=== PATIENT | male | born 1960 | race Caucasian/White ===

== ENCOUNTER 2017-09-21 18:26 | Emergency (ER) | payer MEDICAID | END 2017-09-21 19:03 | disposition home or self-care (01) | LOC: E/R 19:03 → FTE 18:26 | DX: Z48.01 Encounter for change or removal of surgical wound dressing (principal) | CPT/HCPCS: 99283; Z7502 ==

== ENCOUNTER 2018-05-06 16:16 | Emergency (ER) | payer MEDICAID ==
[2018-05-06] MEDS: LIDOCAINE 4% CR TOP (20:23)
[2018-05-06] MEDS: BACITRACIN 0.5%/ZINC 28.35 GM OINT TOP (20:39)
[2018-05-06] MEDS: DIPHTH/TET/ACEL PERTUSS (ADULT) 0.5 ML VIAL IM* (20:46)
== END 2018-05-06 21:05 | disposition home or self-care (01) ==
LOC: FTE 16:16
DX: S30.9 Unspecified superficial injury of abdomen, lower back, pelvis and external genitals (principal); W22.8XXA Striking against or struck by other objects, initial encounter; Y92.9 Unspecified place or not applicable; Z87.891 Personal history of nicotine dependence
CPT/HCPCS: 90471; 90715; 99283-25

== ENCOUNTER 2018-05-07 09:40 | Emergency (ER) | payer MEDICAID ==
[2018-05-07 12:34] LABS: WHITE BLOOD COUNT 3.3 10^3/ul (4.8-10.8)
[2018-05-07 12:34] LABS: ABNORMAL IP MESSAGE 1; MEAN CORPUSCULAR HGB CONC 34.5 g/dl (32.0-37.0); MEAN CORPUSCULAR VOLUME 104.3 fl (82.0-101.0); PLATELET COUNT 42 10^3/UL (140-415); POSITIVE DIFF @See below; RED BLOOD COUNT 2.78 10^6/ul (4.70-6.10); RED CELL DISTRIBUTION WIDTH 14.9 % (11.5-14.5)
[2018-05-07 12:37] LABS: ADD MAN DIFF? YES
[2018-05-07] MEDS: SOD CHLORIDE 0.9% 1,000 ML IV (12:51)
[2018-05-07] MEDS: ONDANSETRON 4 MG INJ IV ×2 (12:51→16:42)
[2018-05-07] MEDS: morphine 4 MG/ML VIAL IV (12:51)
[2018-05-07 12:54] LABS: INR 1.46; PT RATIO 1.4
[2018-05-07 12:57] LABS: ANISOCYTOSIS 2+ (0-0); BASOPHILS % (M) 1 % (0-2); EOSINOPHILS % (M) 1 % (0-7); GIANT THROMBO% (M) 1 % (0-0); LYMPHOCYTES #M 0.4 10^3/ul (0.8-2.9); LYMPHOCYTES % (M) 13 % (15-51); MONOCYTE #M 0.2 10^3/ul (0.3-0.9); MONOCYTES % (M) 9 % (0-11); PLATELET ESTIMATE DECREASED; SEGMENTED NEUTROPHILS (M) % 76 % (39-77); SMUDGE%M 17 % (0-0)
[2018-05-07 13:08] LABS: ALANINE AMINOTRANSFERASE 42 IU/L (13-69); ALBUMIN 2.6 g/dl (3.3-4.9); ALBUMIN/GLOBULIN RATIO 0.57; ALKALINE PHOSPHATASE 266 IU/L (42-121); AMYLASE 42 U/L (11-123); ANION GAP 11 (5-13); ASPARTATE AMINO TRANSFERASE 143 IU/L (15-46); BILIRUBIN,INDIRECT 2.3 mg/dl (0-1.1); BILIRUBIN,TOTAL 2.3 mg/dl (0.2-1.3); BLOOD UREA NITROGEN 3 mg/dl (7-20); CARBON DIOXIDE 26 mmol/L (21-31); CHLORIDE 102 mmol/L (97-110); CREATININE 0.42 mg/dl (0.61-1.24); Estimated GFR > 60 mL/min (>60); GLUCOSE 122 mg/dl (70-220); LIPASE 54 U/L (23-300); SODIUM 139 mmol/L (135-144); TOTAL PROTEIN 7.1 g/dl (6.1-8.1)
[2018-05-07 13:20] LABS: TROPONIN-I 0.015 ng/ml (0.000-0.120)
[2018-05-07] MEDS: IOHEXOL 300MG/ML 150 ML BTL (14:59)
[2018-05-07] MEDS: SOD CHLORIDE 0.9% 100 ML (15:01)
[2018-05-07] MEDS: metroNIDAZOLE 500 MG/NS (PMX) 100 ML IVPB (16:41)
[2018-05-07] MEDS: HYDROmorphONE 2 MG/ML SYG IV (16:42)
[2018-05-07] MEDS: CIPROFLOXACIN 400MG/D5W 200 ML IVPB (17:56)
== END 2018-05-07 19:34 | disposition home or self-care (01) ==
LOC: E/R 09:40
DX: K70.31 Alcoholic cirrhosis of liver with ascites (principal); K57.30 Diverticulosis of large intestine without perforation or abscess without bleeding; K52.9 Noninfective gastroenteritis and colitis, unspecified; R10.32 Left lower quadrant pain
CPT/HCPCS: 36415; 74177; 80053; 82150; 83690; 84484; 85025; 85610; 85730; 93005; 96374; 96375; 99285-25

== ENCOUNTER 2018-06-29 09:14 | Inpatient (IN) | payer MEDICAID ==
[2018-06-29] MEDS: KETOROLAC 15 MG INJ IV (09:53)
[2018-06-29] MEDS: ACETAMINOPHEN 500 MG TAB PO (09:54)
[2018-06-29] MEDS: CEFEPIME 2GM/50 ML (PMX) 50 ML IVPB (09:54)
[2018-06-29] MEDS: SODIUM CHLORIDE 0.9% 1L BAG IV* (09:55)
[2018-06-29 10:02] LABS: ADD MAN DIFF? NO
[2018-06-29 10:06] LABS: ABNORMAL IP MESSAGE 1; HEMATOCRIT 32.6 % (42.0-52.0); LYMPHOCYTES # 0.5 10^3/ul (0.8-2.9); LYMPHOCYTES % 13.1 % (15.0-51.0); MEAN CORPUSCULAR HEMOGLOBIN 32.1 pg (29.0-33.0); MEAN CORPUSCULAR HGB CONC 33.7 g/dl (32.0-37.0); MEAN PLATELET VOLUME 11.6 fl (7.4-10.4); MONOCYTE # 0.4 10^3/ul (0.3-0.9); MONOCYTES % 9.2 % (0.0-11.0); NEUTROPHIL # 3.2 10^3/ul (1.6-7.5); NEUTROPHILS % 76.5 % (39.0-77.0); PLATELET COUNT 64 10^3/UL (140-415); POSITIVE DIFF @See below; RED BLOOD COUNT 3.43 10^6/ul (4.70-6.10); RED CELL DISTRIBUTION WIDTH 15.4 % (11.5-14.5)
[2018-06-29 10:06] LABS: WHITE BLOOD COUNT 4.1 10^3/ul (4.8-10.8)
[2018-06-29 10:28] LABS: INR 1.39; PROTIME 17.3 Sec (11.9-14.9); PT RATIO 1.4
[2018-06-29 10:29] LABS: PARTIAL THROMBOPLASTIN TIME 35.2 Sec (23.0-35.0)
[2018-06-29 11:04] LABS: ALANINE AMINOTRANSFERASE 26 IU/L (13-69); ALBUMIN 3.4 g/dl (3.3-4.9); ALBUMIN/GLOBULIN RATIO 0.65; ALKALINE PHOSPHATASE 317 IU/L (42-121); ANION GAP 13 (5-13); ASPARTATE AMINO TRANSFERASE 115 IU/L (15-46); BLOOD UREA NITROGEN 5 mg/dl (7-20); CALCIUM 8.4 mg/dl (8.4-10.2); CARBON DIOXIDE 22 mmol/L (21-31); CHLORIDE 102 mmol/L (97-110); CREATININE 0.52 mg/dl (0.61-1.24); Estimated GFR > 60 mL/min (>60); GLUCOSE 191 mg/dl (70-220); POTASSIUM 3.5 mmol/L (3.5-5.1); SODIUM 137 mmol/L (135-144); TOTAL PROTEIN 8.6 g/dl (6.1-8.1)
[2018-06-29 11:17] LABS: TROPONIN-I < 0.012 ng/ml (0.000-0.120)
[2018-06-29] MEDS: VANCOMYCIN 1 GM (PMX) 250 ML IVPB (11:23)
[2018-06-29] MEDS ORDERED: NACL 0.9% 3 ML SYG IV (12:00)
[2018-06-29] MEDS ORDERED: GUAIFENESIN/CODEINE 5ML CUP PO (12:00)
[2018-06-29] MEDS ORDERED: ONDANSETRON 4 MG INJ IV ×2 (12:00→12:30)
[2018-06-29] MEDS ORDERED: ALBUTEROL/IPRATROPIUM (NEB) 3 ML AMP HHN (12:00)
[2018-06-29] MEDS ORDERED: ACETAMINOPHEN 325 MG TAB PO (12:30)
[2018-06-29 13:11] LABS: ADD UMIC YES; UR ASCORBIC ACID NEGATIVE (NEGATIVE); UR BILIRUBIN (Dip) NEGATIVE (NEGATIVE); UR BLOOD (Dip) 1+ mg/dL (NEGATIVE); UR CLARITY CLEAR (CLEAR); UR COLOR COLORLESS (YELLOW); UR GLUCOSE (Dip) NEGATIVE (NEGATIVE); UR KETONES (Dip) NEGATIVE (NEGATIVE); UR LEUKOCYTE ESTERASE (Dip) NEGATIVE Leu/ul (NEGATIVE); UR NITRITE (Dip) NEGATIVE (NEGATIVE); UR RBC 0 /HPF (0-5); UR SPECIFIC GRAVITY (Dip) 1.002 (1.003-1.030); UR TOTAL PROTEIN (Dip) NEGATIVE (NEGATIVE); UR UROBILINOGEN (Dip) NEGATIVE (NEGATIVE); UR WBC 0 /HPF (0-5)
[2018-06-29] MEDS: ALBUTEROL/IPRATROPIUM (NEB) 3 ML AMP HHN ×2 (14:00→19:58)
[2018-06-29] MEDS ORDERED: HEPARIN 5,000 UNIT/1 ML VIAL SC (14:00)
[2018-06-29] MEDS: SOD CHLORIDE 0.9% 1,000 ML IV (14:01)
[2018-06-29 15:03] LABS: LACTIC ACID 1.6 mmol/L (0.5-2.0)
[2018-06-29] MEDS: HYDROCODONE/APAP (5/325) TAB PO (18:19)
[2018-06-29] MEDS: CEFEPIME 1GM/50 ML (PMX) 50 ML IVPB (20:20)
[2018-06-30] MEDS: PANTOPRAZOLE (EC) 40 MG TAB PO (05:17)
[2018-06-30] MEDS: ACETAMINOPHEN 325 MG TAB PO ×2 (05:17→20:25)
[2018-06-30 06:00] LABS: ADD MAN DIFF? NO
[2018-06-30 06:07] LABS: WHITE BLOOD COUNT 5.1 10^3/ul (4.8-10.8)
[2018-06-30 06:07] LABS: ABNORMAL IP MESSAGE 1; BASOPHIL # 0.1 10^3/ul (0.0-0.1); EOSINOPHILS # 0.2 10^3/ul (0.0-0.5); EOSINOPHILS % 2.9 % (0.0-7.0); HEMOGLOBIN 10.5 g/dl (14.0-18.0); LYMPHOCYTES # 1.6 10^3/ul (0.8-2.9); LYMPHOCYTES % 31.4 % (15.0-51.0); MEAN CORPUSCULAR HEMOGLOBIN 32.4 pg (29.0-33.0); MEAN CORPUSCULAR VOLUME 92.6 fl (82.0-101.0); MEAN PLATELET VOLUME 10.4 fl (7.4-10.4); MONOCYTE # 0.7 10^3/ul (0.3-0.9); MONOCYTES % 13.1 % (0.0-11.0); NEUTROPHIL # 2.6 10^3/ul (1.6-7.5); NEUTROPHILS % 51.2 % (39.0-77.0); PLATELET COUNT 55 10^3/UL (140-415); POSITIVE DIFF @See below; RED BLOOD COUNT 3.24 10^6/ul (4.70-6.10); RED CELL DISTRIBUTION WIDTH 15.1 % (11.5-14.5)
[2018-06-30 06:37] LABS: ALANINE AMINOTRANSFERASE 31 IU/L (13-69); ALBUMIN 2.9 g/dl (3.3-4.9); ALBUMIN/GLOBULIN RATIO 0.78; ALKALINE PHOSPHATASE 234 IU/L (42-121); ANION GAP 11 (5-13); ASPARTATE AMINO TRANSFERASE 75 IU/L (15-46); BILIRUBIN,INDIRECT 1.9 mg/dl (0-1.1); BILIRUBIN,TOTAL 1.9 mg/dl (0.2-1.3); BLOOD UREA NITROGEN 5 mg/dl (7-20); CALCIUM 8.2 mg/dl (8.4-10.2); CARBON DIOXIDE 23 mmol/L (21-31); CHLORIDE 103 mmol/L (97-110); CREATININE 0.48 mg/dl (0.61-1.24); Estimated GFR > 60 mL/min (>60); GLUCOSE 95 mg/dl (70-220); MAGNESIUM 1.4 mg/dl (1.7-2.5); POTASSIUM 3.5 mmol/L (3.5-5.1); SODIUM 137 mmol/L (135-144); TOTAL PROTEIN 6.6 g/dl (6.1-8.1)
[2018-06-30] MEDS: ALBUTEROL/IPRATROPIUM (NEB) 3 ML AMP HHN ×3 (08:50→19:42)
[2018-06-30] MEDS: CEFEPIME 1GM/50 ML (PMX) 50 ML IVPB ×2 (09:53→20:25)
[2018-06-30] MEDS: MAGNESIUM SULFATE 2 GM/50 ML 50 ML IVPB (10:27)
[2018-06-30] MEDS: SOD CHLORIDE 0.9% 1,000 ML IV (11:37)
[2018-07-01] MEDS: PANTOPRAZOLE (EC) 40 MG TAB PO (05:44)
[2018-07-01 05:55] LABS: ADD MAN DIFF? NO
[2018-07-01 06:01] LABS: WHITE BLOOD COUNT 5.2 10^3/ul (4.8-10.8)
[2018-07-01 06:01] LABS: ABNORMAL IP MESSAGE 1; BASOPHIL # 0.1 10^3/ul (0.0-0.1); EOSINOPHILS # 0.3 10^3/ul (0.0-0.5); EOSINOPHILS % 6.2 % (0.0-7.0); HEMOGLOBIN 10.6 g/dl (14.0-18.0); LYMPHOCYTES # 1.8 10^3/ul (0.8-2.9); LYMPHOCYTES % 35.1 % (15.0-51.0); MEAN CORPUSCULAR HEMOGLOBIN 32.2 pg (29.0-33.0); MEAN CORPUSCULAR HGB CONC 34.2 g/dl (32.0-37.0); MEAN CORPUSCULAR VOLUME 94.2 fl (82.0-101.0); MONOCYTE # 0.6 10^3/ul (0.3-0.9); MONOCYTES % 11.8 % (0.0-11.0); NEUTROPHIL # 2.4 10^3/ul (1.6-7.5); NEUTROPHILS % 45.7 % (39.0-77.0); PLATELET COUNT 58 10^3/UL (140-415); POSITIVE DIFF @See below; RED BLOOD COUNT 3.29 10^6/ul (4.70-6.10); RED CELL DISTRIBUTION WIDTH 15.3 % (11.5-14.5)
[2018-07-01 06:29] LABS: ANION GAP 10 (5-13); BLOOD UREA NITROGEN 7 mg/dl (7-20); CALCIUM 8.2 mg/dl (8.4-10.2); CARBON DIOXIDE 23 mmol/L (21-31); CHLORIDE 109 mmol/L (97-110); CREATININE 0.48 mg/dl (0.61-1.24); Estimated GFR > 60 mL/min (>60); GLUCOSE 93 mg/dl (70-220); MAGNESIUM 1.6 mg/dl (1.7-2.5); PHOSPHORUS 3.8 mg/dl (2.5-4.9); POTASSIUM 3.6 mmol/L (3.5-5.1); SODIUM 142 mmol/L (135-144)
[2018-07-01] MEDS: ALBUTEROL/IPRATROPIUM (NEB) 3 ML AMP HHN ×3 (07:22→20:38)
[2018-07-01] MEDS: CEFEPIME 1GM/50 ML (PMX) 50 ML IVPB ×2 (09:12→20:20)
[2018-07-01] MEDS: MAGNESIUM OXIDE 400 MG TAB PO (11:09)
[2018-07-01] MEDS: NYSTATIN SUSP 5 ML CUP PO ×3 (15:17→20:20)
[2018-07-01 15:46] LABS: HIV 1&2 ANTIBODY NEGATIVE (NEGATIVE)
[2018-07-01] MEDS: SOD CHLORIDE 0.9% 1,000 ML IV (16:42)
[2018-07-01] MEDS: NYSTATIN 15 GM OINT TOP ×2 (17:32→20:20)
[2018-07-01] MEDS ORDERED: NYSTATIN 15 GM OINT TOP (21:00)
[2018-07-02] MEDS: PANTOPRAZOLE (EC) 40 MG TAB PO (05:40)
[2018-07-02 06:54] LABS: ALANINE AMINOTRANSFERASE 27 IU/L (13-69); ALBUMIN 2.7 g/dl (3.3-4.9); ALBUMIN/GLOBULIN RATIO 0.62; ALKALINE PHOSPHATASE 273 IU/L (42-121); ANION GAP 7 (5-13); ASPARTATE AMINO TRANSFERASE 69 IU/L (15-46); BILIRUBIN,INDIRECT 1.8 mg/dl (0-1.1); BILIRUBIN,TOTAL 1.8 mg/dl (0.2-1.3); BLOOD UREA NITROGEN 5 mg/dl (7-20); CARBON DIOXIDE 22 mmol/L (21-31); CHLORIDE 110 mmol/L (97-110); CREATININE 0.43 mg/dl (0.61-1.24); Estimated GFR > 60 mL/min (>60); GLUCOSE 94 mg/dl (70-220); MAGNESIUM 1.5 mg/dl (1.7-2.5); POTASSIUM 3.7 mmol/L (3.5-5.1); SODIUM 139 mmol/L (135-144)
[2018-07-02] MEDS: ALBUTEROL/IPRATROPIUM (NEB) 3 ML AMP HHN ×3 (07:50→19:51)
[2018-07-02] MEDS: NYSTATIN 15 GM OINT TOP ×3 (08:23→21:00)
[2018-07-02] MEDS: NYSTATIN SUSP 5 ML CUP PO ×4 (08:24→20:56)
[2018-07-02] MEDS: CEFEPIME 1GM/50 ML (PMX) 50 ML IVPB (08:24)
[2018-07-03] MEDS: PANTOPRAZOLE (EC) 40 MG TAB PO (06:11)
[2018-07-03] MEDS: ALBUTEROL/IPRATROPIUM (NEB) 3 ML AMP HHN (08:00)
[2018-07-03] MEDS: NYSTATIN SUSP 5 ML CUP PO (08:32)
[2018-07-03] MEDS: NYSTATIN 15 GM OINT TOP (08:35)
== END 2018-07-03 11:52 | disposition home or self-care (01) | DRG 872 ==
LOC: E/R 09:14 → PP2 12:20
PROVIDERS: Internal Medicine
PROC: 3E0234Z Introduction of Serum, Toxoid and Vaccine into Muscle, Percutaneous Approach (ICD-10-PCS; principal; 2018-06-30)
DX: A41.89 Other specified sepsis (principal); D61.818 Other pancytopenia; E87.2 Acidosis; B37.0 Candidal stomatitis; J06.9 Acute upper respiratory infection, unspecified; K70.30 Alcoholic cirrhosis of liver without ascites; Z23 Encounter for immunization
CPT/HCPCS: 71045; 80048; 80053; 81001; 83605; 83735; 84100; 84484; 85025; 85610; 85730; 86703; 87040; 87086; 87400; 90686; 93005; 94640; 94664; 96365; 96375; 99285-25

== ENCOUNTER 2018-07-15 08:07 | Emergency (ER) | payer MEDICAID ==
[2018-07-15] MEDS: morphine 4 MG/ML VIAL IV (08:38)
[2018-07-15 08:39] LABS: ADD MAN DIFF? NO
[2018-07-15] MEDS: ONDANSETRON 4 MG INJ IV (08:39)
[2018-07-15 08:44] LABS: WHITE BLOOD COUNT 3.4 10^3/ul (4.8-10.8)
[2018-07-15 08:44] LABS: ABNORMAL IP MESSAGE 1; BASOPHIL # 0.1 10^3/ul (0.0-0.1); BASOPHILS % 1.5 % (0.0-2.0); EOSINOPHILS # 0.1 10^3/ul (0.0-0.5); EOSINOPHILS % 2.4 % (0.0-7.0); HEMATOCRIT 32.7 % (42.0-52.0); HEMOGLOBIN 11.1 g/dl (14.0-18.0); LYMPHOCYTES # 1.1 10^3/ul (0.8-2.9); LYMPHOCYTES % 31.6 % (15.0-51.0); MEAN CORPUSCULAR HEMOGLOBIN 31.4 pg (29.0-33.0); MEAN CORPUSCULAR HGB CONC 33.9 g/dl (32.0-37.0); MEAN CORPUSCULAR VOLUME 92.6 fl (82.0-101.0); MEAN PLATELET VOLUME 12.2 fl (7.4-10.4); MONOCYTE # 0.4 10^3/ul (0.3-0.9); MONOCYTES % 11.3 % (0.0-11.0); NEUTROPHIL # 1.8 10^3/ul (1.6-7.5); NEUTROPHILS % 52.9 % (39.0-77.0); PLATELET COUNT 57 10^3/UL (140-415); POSITIVE DIFF @See below; RED BLOOD COUNT 3.53 10^6/ul (4.70-6.10); RED CELL DISTRIBUTION WIDTH 15.8 % (11.5-14.5)
[2018-07-15 08:47] LABS: ADD UMIC YES; UR ASCORBIC ACID NEGATIVE (NEGATIVE); UR BILIRUBIN (Dip) NEGATIVE (NEGATIVE); UR BLOOD (Dip) 1+ mg/dL (NEGATIVE); UR CLARITY CLEAR (CLEAR); UR COLOR YELLOW (YELLOW); UR GLUCOSE (Dip) NEGATIVE (NEGATIVE); UR KETONES (Dip) NEGATIVE (NEGATIVE); UR LEUKOCYTE ESTERASE (Dip) NEGATIVE Leu/ul (NEGATIVE); UR NITRITE (Dip) NEGATIVE (NEGATIVE); UR RBC 3 /HPF (0-5); UR SPECIFIC GRAVITY (Dip) 1.014 (1.003-1.030); UR TOTAL PROTEIN (Dip) NEGATIVE (NEGATIVE); UR UROBILINOGEN (Dip) 2+ mg/dL (NEGATIVE); UR WBC 0 /HPF (0-5)
[2018-07-15 09:06] LABS: ALANINE AMINOTRANSFERASE 42 IU/L (13-69); ALBUMIN 3.7 g/dl (3.3-4.9); ALBUMIN/GLOBULIN RATIO 0.67; ALKALINE PHOSPHATASE 415 IU/L (42-121); ANION GAP 11 (5-13); ASPARTATE AMINO TRANSFERASE 169 IU/L (15-46); BILIRUBIN,INDIRECT 1.7 mg/dl (0-1.1); BILIRUBIN,TOTAL 1.7 mg/dl (0.2-1.3); BLOOD UREA NITROGEN 7 mg/dl (7-20); CALCIUM 8.9 mg/dl (8.4-10.2); CARBON DIOXIDE 21 mmol/L (21-31); CHLORIDE 107 mmol/L (97-110); CREATININE 0.44 mg/dl (0.61-1.24); Estimated GFR > 60 mL/min (>60); GLUCOSE 114 mg/dl (70-220); LIPASE 147 U/L (23-300); POTASSIUM 3.4 mmol/L (3.5-5.1); SODIUM 139 mmol/L (135-144); TOTAL PROTEIN 9.2 g/dl (6.1-8.1)
[2018-07-15 09:18] LABS: TROPONIN-I < 0.012 ng/ml (0.000-0.120)
== END 2018-07-15 10:45 | disposition home or self-care (01) ==
LOC: E/R 08:07
DX: R10.13 Epigastric pain (principal)
CPT/HCPCS: 36415; 76705; 80053; 81001; 83690; 84484; 85025; 93005; 96374; 96375; 99285-25

== ENCOUNTER 2018-08-10 09:22 | Emergency (ER) | payer MEDICAID | END 2018-08-10 10:26 | disposition home or self-care (01) | LOC: FTE 09:22 | DX: R05 Cough (principal); R40.2412 Glasgow coma scale score 13-15, at arrival to emergency department; R52 Pain, unspecified | CPT/HCPCS: 99283; Z7502 ==

== ENCOUNTER 2018-08-28 16:25 | Emergency (ER) | payer MEDICAID ==
[2018-08-28 18:02] LABS: ABNORMAL IP MESSAGE 1; HEMATOCRIT 29.7 % (42.0-52.0); HEMOGLOBIN 9.9 g/dl (14.0-18.0); MEAN CORPUSCULAR HEMOGLOBIN 30.7 pg (29.0-33.0); MEAN CORPUSCULAR HGB CONC 33.3 g/dl (32.0-37.0); MEAN CORPUSCULAR VOLUME 92.2 fl (82.0-101.0); MEAN PLATELET VOLUME 9.3 fl (7.4-10.4); PLATELET COUNT 75 10^3/UL (140-415); POSITIVE DIFF @See below; RED BLOOD COUNT 3.22 10^6/ul (4.70-6.10); RED CELL DISTRIBUTION WIDTH 20.3 % (11.5-14.5)
[2018-08-28 18:02] LABS: WHITE BLOOD COUNT 4.9 10^3/ul (4.8-10.8)
[2018-08-28 18:08] LABS: ANION GAP 5 (5-13); BLOOD UREA NITROGEN 9 mg/dl (7-20); CARBON DIOXIDE 24 mmol/L (21-31); CHLORIDE 112 mmol/L (97-110); CREATININE 0.56 mg/dl (0.61-1.24); Estimated GFR > 60 mL/min (>60); GLUCOSE 99 mg/dl (70-220); POTASSIUM 3.6 mmol/L (3.5-5.1); SODIUM 141 mmol/L (135-144)
[2018-08-28 18:15] LABS: ADD MAN DIFF? YES
[2018-08-28] MEDS: SOD CHLORIDE 0.9% 1,000 ML IV (18:17)
[2018-08-28] MEDS: KETOROLAC 30 MG INJ IV (18:17)
[2018-08-28 18:19] LABS: TROPONIN-I < 0.012 ng/ml (0.000-0.120)
[2018-08-28 19:25] LABS: BASOPHILS % (M) 2 % (0-2); EOSINOPHILS % (M) 3 % (0-7); GIANT THROMBO% (M) 1 % (0-0); LYMPHOCYTES #M 1.1 10^3/ul (0.8-2.9); LYMPHOCYTES % (M) 24 % (15-51); MONOCYTE #M 0.3 10^3/ul (0.3-0.9); MONOCYTES % (M) 7 % (0-11); PLATELET ESTIMATE NORMAL; SEGMENTED NEUTROPHILS (M) % 64 % (39-77); SMUDGE%M 2 % (0-0)
[2018-08-28] MEDS: ONDANSETRON 4 MG INJ IV (22:29)
[2018-08-28] MEDS: HYDROmorphONE 1 MG/ML SYG IV (22:30)
== END 2018-08-28 23:25 | disposition home or self-care (01) ==
LOC: FTE 16:25 → E/R 23:25
DX: B34.9 Viral infection, unspecified (principal); R07.9 Chest pain, unspecified
CPT/HCPCS: 36415; 71045; 80048; 84484; 85025; 87400; 93005; 96374; 96375; 99285-25

== ENCOUNTER 2018-09-12 08:34 | Emergency (ER) | payer MEDICAID ==
[2018-09-12] MEDS: KETOROLAC 30 MG INJ IM (11:05)
== END 2018-09-12 12:30 | disposition home or self-care (01) ==
LOC: FTE 08:34
DX: S49.92XA Unspecified injury of left shoulder and upper arm, initial encounter (principal); X58.XXXA Exposure to other specified factors, initial encounter; Y92.9 Unspecified place or not applicable
CPT/HCPCS: 73030; 96372; 99284-25

== ENCOUNTER 2018-10-19 17:29 | Inpatient (IN) | payer MEDICAID ==
[2018-10-19] MEDS ORDERED: TRANEXAMIC ACID 1GM/100ML(PMX) 100 ML IV (21:00)
[2018-10-19] MEDS ORDERED: TRANEXAMIC ACID 1,000 MG/10 ML VIAL IRR (21:00)
[2018-10-19 21:02] LABS: ABNORMAL IP MESSAGE 1; HEMATOCRIT 29.5 % (42.0-52.0); MEAN CORPUSCULAR HEMOGLOBIN 31.7 pg (29.0-33.0); MEAN CORPUSCULAR HGB CONC 33.9 g/dl (32.0-37.0); MEAN CORPUSCULAR VOLUME 93.7 fl (82.0-101.0); MEAN PLATELET VOLUME 10.5 fl (7.4-10.4); POSITIVE DIFF @See below; RED BLOOD COUNT 3.15 10^6/ul (4.70-6.10); RED CELL DISTRIBUTION WIDTH 18.2 % (11.5-14.5)
[2018-10-19 21:06] LABS: ADD MAN DIFF? YES; PATH REVIEW? YES; PLATELET COUNT 17 10^3/UL (140-415)
[2018-10-19 21:17] LABS: ALANINE AMINOTRANSFERASE 42 IU/L (13-69); ALBUMIN 3.4 g/dl (3.3-4.9); ALKALINE PHOSPHATASE 311 IU/L (42-121); ANION GAP 11 (5-13); ASPARTATE AMINO TRANSFERASE 160 IU/L (15-46); BILIRUBIN,INDIRECT 1.1 mg/dl (0-1.1); BILIRUBIN,TOTAL 1.1 mg/dl (0.2-1.3); BLOOD UREA NITROGEN 8 mg/dl (7-20); CALCIUM 8.5 mg/dl (8.4-10.2); CARBON DIOXIDE 24 mmol/L (21-31); CHLORIDE 107 mmol/L (97-110); CREATININE 0.59 mg/dl (0.61-1.24); Estimated GFR > 60 mL/min (>60); GLUCOSE 98 mg/dl (70-220); POTASSIUM 3.5 mmol/L (3.5-5.1); SODIUM 142 mmol/L (135-144); TOTAL PROTEIN 8.2 g/dl (6.1-8.1)
[2018-10-19 21:20] LABS: INR 1.39; PROTIME 17.2 Sec (11.9-14.9); PT RATIO 1.3
[2018-10-19 21:21] LABS: PARTIAL THROMBOPLASTIN TIME 39.2 Sec (23.0-35.0)
[2018-10-19 21:28] LABS: TROPONIN-I < 0.012 ng/ml (0.000-0.120)
[2018-10-19 21:42] LABS: ANISOCYTOSIS 2+ (0-0); BASOPHILS % (M) 1 % (0-2); EOSINOPHILS % (M) 6 % (0-7); HYPOCHROMASIA 1+ (0-0); LYMPHOCYTES #M 1.2 10^3/ul (0.8-2.9); LYMPHOCYTES % (M) 40 % (15-51); MONOCYTE #M 0.1 10^3/ul (0.3-0.9); MONOCYTES % (M) 5 % (0-11); PLATELET ESTIMATE DECREASED; POIKILOCYTOSIS 1+ (0-0); POLYCHROMASIA 3+ (0-0); REACTIVE LYMPHOCYTES% (M) 2 % (0-0); SEGMENTED NEUTROPHILS (M) % 46 % (39-77); SMUDGE%M 6 % (0-0)
[2018-10-19] MEDS: SODIUM CHLORIDE 0.9% 1L BAG IV* (21:43)
[2018-10-19] MEDS: CEFEPIME 2GM/50 ML (PMX) 50 ML IVPB (21:43)
[2018-10-19] MEDS: VANCOMYCIN 1 GM (PMX) 250 ML IVPB (21:44)
[2018-10-19] MEDS: TRANEXAMIC ACID 1,000 MG/10 ML VIAL IRR (22:00)
[2018-10-19 22:47] LABS: LACTIC ACID 1.6 mmol/L (0.5-2.0)
[2018-10-19 22:53] LABS: D-DIMER 1130.83 ng/ml (<460)
[2018-10-19 23:04] LABS: FIBRIN SPLIT PRODUCT <10 ug/ml (<10)
[2018-10-19 23:23] LABS: ALANINE AMINOTRANSFERASE 36 IU/L (13-69); ALBUMIN/GLOBULIN RATIO 0.68; ALKALINE PHOSPHATASE 299 IU/L (42-121); ANION GAP 10 (5-13); ASPARTATE AMINO TRANSFERASE 150 IU/L (15-46); BLOOD UREA NITROGEN 7 mg/dl (7-20); CALCIUM 7.6 mg/dl (8.4-10.2); CARBON DIOXIDE 21 mmol/L (21-31); CHLORIDE 111 mmol/L (97-110); CREATININE 0.49 mg/dl (0.61-1.24); Estimated GFR > 60 mL/min (>60); GLUCOSE 94 mg/dl (70-220); LIPASE 273 U/L (23-300); POTASSIUM 3.3 mmol/L (3.5-5.1); SODIUM 142 mmol/L (135-144); TOTAL PROTEIN 7.4 g/dl (6.1-8.1)
[2018-10-19] MEDS ORDERED: NACL 0.9% 3 ML SYG IV (23:30)
[2018-10-19] MEDS ORDERED: ONDANSETRON 4 MG INJ IV (23:30)
[2018-10-20] MEDS: ACETAMINOPHEN 500 MG TAB PO ×3 (00:32→15:45)
[2018-10-20 00:53] LABS: ADD UMIC YES; UR ASCORBIC ACID NEGATIVE (NEGATIVE); UR BILIRUBIN (Dip) NEGATIVE (NEGATIVE); UR BLOOD (Dip) 1+ mg/dL (NEGATIVE); UR CLARITY CLEAR (CLEAR); UR COLOR STRAW (YELLOW); UR GLUCOSE (Dip) NEGATIVE (NEGATIVE); UR KETONES (Dip) NEGATIVE (NEGATIVE); UR LEUKOCYTE ESTERASE (Dip) NEGATIVE Leu/ul (NEGATIVE); UR NITRITE (Dip) NEGATIVE (NEGATIVE); UR RBC 1 /HPF (0-5); UR SPECIFIC GRAVITY (Dip) 1.004 (1.003-1.030); UR TOTAL PROTEIN (Dip) NEGATIVE (NEGATIVE); UR UROBILINOGEN (Dip) NEGATIVE (NEGATIVE); UR WBC 0 /HPF (0-5)
[2018-10-20] MEDS: OXYMETAZOLINE 0.05% 15 ML NAS SPRAY NASAL ×3 (00:54→21:04)
[2018-10-20] MEDS: POTASSIUM CHLORIDE (SR) 20 MEQ TAB PO ×2 (01:32→22:29)
[2018-10-20 03:02] LABS: LACTIC ACID 1.9 mmol/L (0.5-2.0)
[2018-10-20] MEDS: PANTOPRAZOLE 40 MG INJ IV (06:21)
[2018-10-20] MEDS ORDERED: HYDROCODONE/APAP (5/325) TAB PO ×2 (07:30)
[2018-10-20 08:30] LABS: ADD MAN DIFF? NO
[2018-10-20 08:38] LABS: ABNORMAL IP MESSAGE 1; BASOPHILS % 1.5 % (0.0-2.0); EOSINOPHILS # 0.1 10^3/ul (0.0-0.5); EOSINOPHILS % 3.4 % (0.0-7.0); HEMATOCRIT 30.4 % (42.0-52.0); HEMOGLOBIN 10.1 g/dl (14.0-18.0); LYMPHOCYTES # 0.9 10^3/ul (0.8-2.9); LYMPHOCYTES % 33.7 % (15.0-51.0); MEAN CORPUSCULAR HEMOGLOBIN 31.2 pg (29.0-33.0); MEAN CORPUSCULAR HGB CONC 33.2 g/dl (32.0-37.0); MEAN CORPUSCULAR VOLUME 93.8 fl (82.0-101.0); MONOCYTE # 0.3 10^3/ul (0.3-0.9); MONOCYTES % 12.6 % (0.0-11.0); NEUTROPHIL # 1.3 10^3/ul (1.6-7.5); NEUTROPHILS % 48.4 % (39.0-77.0); POSITIVE DIFF @See below; RED BLOOD COUNT 3.24 10^6/ul (4.70-6.10); RED CELL DISTRIBUTION WIDTH 17.6 % (11.5-14.5)
[2018-10-20 08:43] LABS: WHITE BLOOD COUNT 2.7 10^3/ul (4.8-10.8)
[2018-10-20 08:46] LABS: PLATELET COUNT 17 10^3/UL (140-415)
[2018-10-20 08:53] LABS: TYPE AND SCREEN 1 1
[2018-10-20 09:05] LABS: ALANINE AMINOTRANSFERASE 28 IU/L (13-69); ALBUMIN 3.3 g/dl (3.3-4.9); ALKALINE PHOSPHATASE 310 IU/L (42-121); ANION GAP 12 (5-13); ASPARTATE AMINO TRANSFERASE 150 IU/L (15-46); BILIRUBIN,TOTAL 2.2 mg/dl (0.2-1.3); BLOOD UREA NITROGEN 5 mg/dl (7-20); CALCIUM 7.7 mg/dl (8.4-10.2); CARBON DIOXIDE 22 mmol/L (21-31); CHLORIDE 107 mmol/L (97-110); CHOL/HDL RATIO 3.8 RATIO; CHOLESTEROL 163 mg/dl (100-200); Estimated GFR > 60 mL/min (>60); GLUCOSE 98 mg/dl (70-220); HDL CHOLESTEROL 42 mg/dl (30-78); LDL CHOLESTEROL,CALCULATED 96 mg/dl; MAGNESIUM 1.3 mg/dl (1.7-2.5); POTASSIUM 3.2 mmol/L (3.5-5.1); SODIUM 141 mmol/L (135-144); TRIGLYCERIDES 124 mg/dl (0-149)
[2018-10-20] MEDS: FUROSEMIDE 40 MG TAB PO (15:43)
[2018-10-20] MEDS: THIAMINE 100 MG TAB PO (15:43)
[2018-10-20] MEDS: MAGNESIUM SULFATE 3 GM in DEXTROSE 5% 100 ML IVPB (17:13)
[2018-10-20] MEDS: SOD CHLORIDE 0.9% 0 ML IV (17:30)
[2018-10-20] MEDS: NADOLOL 40 MG TAB PO (21:15)
[2018-10-21] MEDS: PANTOPRAZOLE (EC) 40 MG TAB PO (05:40)
[2018-10-21 06:15] LABS: ADD MAN DIFF? NO; HAAIG REFLEX REFLEX FILED
[2018-10-21 06:22] LABS: ABNORMAL IP MESSAGE 1; BASOPHIL # 0.1 10^3/ul (0.0-0.1); BASOPHILS % 2.2 % (0.0-2.0); EOSINOPHILS # 0.2 10^3/ul (0.0-0.5); EOSINOPHILS % 5.5 % (0.0-7.0); HEMATOCRIT 32.1 % (42.0-52.0); HEMOGLOBIN 11.1 g/dl (14.0-18.0); LYMPHOCYTES % 28.5 % (15.0-51.0); MEAN CORPUSCULAR HGB CONC 34.6 g/dl (32.0-37.0); MEAN CORPUSCULAR VOLUME 92.5 fl (82.0-101.0); MEAN PLATELET VOLUME 11.2 fl (7.4-10.4); MONOCYTE # 0.5 10^3/ul (0.3-0.9); MONOCYTES % 12.6 % (0.0-11.0); NEUTROPHIL # 1.9 10^3/ul (1.6-7.5); NEUTROPHILS % 51.2 % (39.0-77.0); NUCLEATED RED BLOOD CELLS% 0.8 /100WBC (0.0-0.0); POSITIVE DIFF @See below; RED BLOOD COUNT 3.47 10^6/ul (4.70-6.10); RED CELL DISTRIBUTION WIDTH 17.3 % (11.5-14.5)
[2018-10-21 06:22] LABS: WHITE BLOOD COUNT 3.7 10^3/ul (4.8-10.8)
[2018-10-21 06:33] LABS: INR 1.61; PROTIME 19.2 Sec (11.9-14.9); PT RATIO 1.5
[2018-10-21 06:37] LABS: PLATELET COUNT 41 10^3/UL (140-415)
[2018-10-21 06:55] LABS: ALANINE AMINOTRANSFERASE 34 IU/L (13-69); ALBUMIN 3.4 g/dl (3.3-4.9); ALBUMIN/GLOBULIN RATIO 0.69; ALKALINE PHOSPHATASE 283 IU/L (42-121); ANION GAP 11 (5-13); ASPARTATE AMINO TRANSFERASE 123 IU/L (15-46); BILIRUBIN,INDIRECT 2.6 mg/dl (0-1.1); BILIRUBIN,TOTAL 3.3 mg/dl (0.2-1.3); BLOOD UREA NITROGEN 11 mg/dl (7-20); CALCIUM 8.5 mg/dl (8.4-10.2); CARBON DIOXIDE 24 mmol/L (21-31); CHLORIDE 102 mmol/L (97-110); CREATININE 0.51 mg/dl (0.61-1.24); Estimated GFR > 60 mL/min (>60); GLUCOSE 110 mg/dl (70-220); POTASSIUM 3.7 mmol/L (3.5-5.1); SODIUM 137 mmol/L (135-144); TOTAL PROTEIN 8.3 g/dl (6.1-8.1)
[2018-10-21 07:03] LABS: MAGNESIUM 1.9 mg/dl (1.7-2.5)
[2018-10-21 07:21] LABS: HEPATITIS B SURFACE ANTIGEN NEGATIVE (NEGATIVE)
[2018-10-21 07:22] LABS: ALPHA FETOPROTEIN 4.29 IU/L (0.00-7.21)
[2018-10-21 07:39] LABS: HEPATITIS B CORE ANTIBODY REACTIVE (NEGATIVE); HEPATITIS C VIRAL ANTIBODY NEGATIVE (NEGATIVE)
[2018-10-21 07:56] LABS: HEMOGLOBIN A1C 4.6 % (0-5.9)
[2018-10-21 08:20] LABS: PHOSPHORUS 3.7 mg/dl (2.5-4.9)
[2018-10-21] MEDS: OXYMETAZOLINE 0.05% 15 ML NAS SPRAY NASAL (09:00)
[2018-10-21] MEDS: SPIRONOLACTONE 25 MG TAB PO (09:42)
[2018-10-21] MEDS: NADOLOL 40 MG TAB PO (09:42)
[2018-10-21] MEDS: THIAMINE 100 MG TAB PO (09:42)
== END 2018-10-21 15:53 | disposition home or self-care (01) | DRG 809 ==
LOC: FTE 17:29 → TEL 21:38
PROC: 30233R1 Transfusion of Nonautologous Platelets into Peripheral Vein, Percutaneous Approach (ICD-10-PCS; principal; 2018-10-20)
DX: D61.818 Other pancytopenia (principal); D68.4 Acquired coagulation factor deficiency; K70.30 Alcoholic cirrhosis of liver without ascites; R04.0 Epistaxis; E80.6 Other disorders of bilirubin metabolism; M54.5 Low back pain; R10.9 Unspecified abdominal pain; R74.0 Nonspecific elevation of levels of transaminase and lactic acid dehydrogenase [LDH]; R50.9 Fever, unspecified
CPT/HCPCS: 36415; 36430; 71045; 76705; 80053; 80061; 81001; 82105; 83036; 83605; 83690; 83735; 84100; 84443; 84484; 85025; 85362; 85378; 85384; 85610; 85730; 86704; 86709; 86803; 86850; 86900; 86901; 87040-91; 87086; 87340; 87400; 93005; 99285-25

== ENCOUNTER 2019-01-29 14:10 | Emergency (ER) | payer MEDICAID ==
[2019-01-29 16:47] LABS: ADD MAN DIFF? NO
[2019-01-29 16:48] LABS: ABNORMAL IP MESSAGE 1; BASOPHIL # 0.1 10^3/ul (0.0-0.1); BASOPHILS % 1.4 % (0.0-2.0); EOSINOPHILS # 0.2 10^3/ul (0.0-0.5); EOSINOPHILS % 4.9 % (0.0-7.0); HEMATOCRIT 31.3 % (42.0-52.0); HEMOGLOBIN 10.4 g/dl (14.0-18.0); LYMPHOCYTES # 1.3 10^3/ul (0.8-2.9); LYMPHOCYTES % 25.8 % (15.0-51.0); MEAN CORPUSCULAR HEMOGLOBIN 36.7 pg (29.0-33.0); MEAN CORPUSCULAR HGB CONC 33.2 g/dl (32.0-37.0); MEAN CORPUSCULAR VOLUME 110.6 fl (82.0-101.0); MEAN PLATELET VOLUME 10.1 fl (7.4-10.4); MONOCYTE # 0.5 10^3/ul (0.3-0.9); MONOCYTES % 10.8 % (0.0-11.0); NEUTROPHIL # 2.8 10^3/ul (1.6-7.5); NEUTROPHILS % 56.5 % (39.0-77.0); POSITIVE DIFF @See below; RED BLOOD COUNT 2.83 10^6/ul (4.70-6.10); RED CELL DISTRIBUTION WIDTH 17.1 % (11.5-14.5)
[2019-01-29 16:48] LABS: WHITE BLOOD COUNT 4.9 10^3/ul (4.8-10.8)
[2019-01-29 17:11] LABS: PLATELET COUNT 49 10^3/UL (140-415); PROTIME 20.1 Sec (11.9-14.9); PT RATIO 1.6
[2019-01-29 17:12] LABS: PARTIAL THROMBOPLASTIN TIME 40.9 Sec (23.0-35.0)
[2019-01-29 17:18] LABS: ALANINE AMINOTRANSFERASE 34 IU/L (13-69); ALBUMIN 2.4 g/dl (3.3-4.9); ALBUMIN/GLOBULIN RATIO 0.45; ALKALINE PHOSPHATASE 387 IU/L (42-121); AMYLASE 74 U/L (11-123); ANION GAP 8 (5-13); ASPARTATE AMINO TRANSFERASE 143 IU/L (15-46); BILIRUBIN,INDIRECT 2.1 mg/dl (0-1.1); BILIRUBIN,TOTAL 3.1 mg/dl (0.2-1.3); BLOOD UREA NITROGEN 6 mg/dl (7-20); CALCIUM 7.3 mg/dl (8.4-10.2); CARBON DIOXIDE 22 mmol/L (21-31); CHLORIDE 109 mmol/L (97-110); CREATININE 0.68 mg/dl (0.61-1.24); Estimated GFR > 60 mL/min (>60); GLUCOSE 102 mg/dl (70-220); LIPASE 154 U/L (23-300); POTASSIUM 3.3 mmol/L (3.5-5.1); SODIUM 139 mmol/L (135-144); TOTAL PROTEIN 7.7 g/dl (6.1-8.1)
[2019-01-29 17:29] LABS: B-TYPE NATRIURETIC PEPTIDE 201 PG/ML (0-125); TROPONIN-I < 0.012 ng/ml (0.000-0.120)
[2019-01-29 17:44] LABS: AMMONIA 35 umol/l (9-30)
[2019-01-29 18:57] LABS: ADD UMIC YES; UR ASCORBIC ACID NEGATIVE (NEGATIVE); UR BILIRUBIN (Dip) 2+ mg/dL (NEGATIVE); UR BLOOD (Dip) 3+ mg/dL (NEGATIVE); UR CLARITY SLIGHTLY CLOUDY (CLEAR); UR COLOR AMBER (YELLOW); UR GLUCOSE (Dip) NEGATIVE (NEGATIVE); UR KETONES (Dip) NEGATIVE (NEGATIVE); UR LEUKOCYTE ESTERASE (Dip) NEGATIVE Leu/ul (NEGATIVE); UR MUCUS MODERATE /HPF (NONE SEEN); UR NITRITE (Dip) NEGATIVE (NEGATIVE); UR RBC 66 /HPF (0-5); UR SPECIFIC GRAVITY (Dip) 1.025 (1.003-1.030); UR TOTAL PROTEIN (Dip) 3+ mg/dl (NEGATIVE); UR UROBILINOGEN (Dip) 2+ mg/dL (NEGATIVE); UR WBC 6 /HPF (0-5)
[2019-01-29 19:07] LABS: AMPHETAMINE/METHAMPHETAMINE Negative (NEGATIVE); BARBITURATES Negative (NEGATIVE); BENZODIAZEPINES Negative (NEGATIVE); CANNABINOIDS Negative (NEGATIVE); COCAINE Negative (NEGATIVE); OPIATES Negative (NEGATIVE)
[2019-01-29] MEDS: LACTULOSE 30ML CUP PO (20:05)
== END 2019-01-29 20:42 | disposition home or self-care (01) ==
LOC: E/R 14:10
DX: K70.31 Alcoholic cirrhosis of liver with ascites (principal); D47.3 Essential (hemorrhagic) thrombocythemia; R60.0 Localized edema; E72.20 Disorder of urea cycle metabolism, unspecified; F10.920 Alcohol use, unspecified with intoxication, uncomplicated; R10.9 Unspecified abdominal pain; Z87.891 Personal history of nicotine dependence
CPT/HCPCS: 71045; 74176; 80053; 80307; 81001; 82140; 82150; 83690; 83880; 84484; 85025; 85610; 85730; 87086; 93005; 93970; 99285-25

== ENCOUNTER 2019-01-30 10:47 | Emergency (ER) | payer MEDICAID | END 2019-01-30 11:47 | disposition home or self-care (01) | LOC: FTE 10:47 | DX: L29.8 Other pruritus (principal); Z87.891 Personal history of nicotine dependence | CPT/HCPCS: 99282; Z7502 ==

== ENCOUNTER 2019-02-23 15:22 | Emergency (ER) | payer OTHER, MEDICAID ==
[2019-02-23 16:11] LABS: WHITE BLOOD COUNT 4.7 10^3/ul (4.8-10.8)
[2019-02-23 16:11] LABS: ABNORMAL IP MESSAGE 1; HEMATOCRIT 25.4 % (42.0-52.0); HEMOGLOBIN 8.7 g/dl (14.0-18.0); MEAN CORPUSCULAR HEMOGLOBIN 38.5 pg (29.0-33.0); MEAN CORPUSCULAR HGB CONC 34.3 g/dl (32.0-37.0); MEAN CORPUSCULAR VOLUME 112.4 fl (82.0-101.0); MEAN PLATELET VOLUME 10.2 fl (7.4-10.4); PLATELET COUNT 53 10^3/UL (140-415); POSITIVE DIFF @See below; RED BLOOD COUNT 2.26 10^6/ul (4.70-6.10); RED CELL DISTRIBUTION WIDTH 15.4 % (11.5-14.5)
[2019-02-23 16:13] LABS: ADD MAN DIFF? YES
[2019-02-23 16:39] LABS: INR 1.66; PROTIME 19.7 Sec (11.9-14.9); PT RATIO 1.5
[2019-02-23 16:40] LABS: PARTIAL THROMBOPLASTIN TIME 38.9 Sec (23.0-35.0)
[2019-02-23 16:42] LABS: ALANINE AMINOTRANSFERASE 40 IU/L (13-69); ALBUMIN 2.1 g/dl (3.3-4.9); ALBUMIN/GLOBULIN RATIO 0.45; ALKALINE PHOSPHATASE 337 IU/L (42-121); ANION GAP 9 (5-13); ASPARTATE AMINO TRANSFERASE 135 IU/L (15-46); BILIRUBIN,INDIRECT 1.8 mg/dl (0-1.1); BILIRUBIN,TOTAL 1.9 mg/dl (0.2-1.3); BLOOD UREA NITROGEN 9 mg/dl (7-20); CALCIUM 6.7 mg/dl (8.4-10.2); CARBON DIOXIDE 20 mmol/L (21-31); CHLORIDE 106 mmol/L (97-110); CREATININE 0.74 mg/dl (0.61-1.24); Estimated GFR > 60 mL/min (>60); GLUCOSE 113 mg/dl (70-220); POTASSIUM 3.9 mmol/L (3.5-5.1); SODIUM 135 mmol/L (135-144); TOTAL PROTEIN 6.7 g/dl (6.1-8.1)
[2019-02-23 18:36] LABS: ANISOCYTOSIS 2+ (0-0); BASOPHIL #M 0.1 10^3/ul (0.0-0.0); BASOPHILS % (M) 3 % (0-2); EOSINOPHILS % (M) 5 % (0-7); GIANT THROMBO% (M) 1 % (0-0); LYMPHOCYTES #M 1.4 10^3/ul (0.8-2.9); LYMPHOCYTES % (M) 31 % (15-51); MONOCYTE #M 0.6 10^3/ul (0.3-0.9); MONOCYTES % (M) 14 % (0-11); PLATELET ESTIMATE SIG DECREASED; POLYCHROMASIA 1+ (0-0); SEGMENTED NEUTROPHILS (M) % 47 % (39-77); SMUDGE%M 18 % (0-0)
== END 2019-02-23 18:41 | disposition home or self-care (01) ==
LOC: E/R 15:22
DX: R18.8 Other ascites (principal); F17.210 Nicotine dependence, cigarettes, uncomplicated
CPT/HCPCS: 36415; 76705; 80053; 85025; 85610; 85730; 99284-25

== ENCOUNTER 2019-03-22 18:50 | Emergency (ER) | payer OTHER ==
[2019-03-22] MEDS: IBUPROFEN 800 MG TAB PO (19:27)
[2019-03-22] MEDS: ACETAMINOPHEN 500 MG TAB PO (19:27)
[2019-03-22 19:38] LABS: ADD MAN DIFF? NO
[2019-03-22 19:39] LABS: ABNORMAL IP MESSAGE 1; BASOPHIL # 0.1 10^3/ul (0.0-0.1); BASOPHILS % 1.3 % (0.0-2.0); EOSINOPHILS # 0.5 10^3/ul (0.0-0.5); EOSINOPHILS % 10.7 % (0.0-7.0); HEMATOCRIT 24.4 % (42.0-52.0); LYMPHOCYTES # 1.2 10^3/ul (0.8-2.9); LYMPHOCYTES % 27.3 % (15.0-51.0); MEAN CORPUSCULAR HEMOGLOBIN 37.2 pg (29.0-33.0); MEAN CORPUSCULAR HGB CONC 32.8 g/dl (32.0-37.0); MEAN CORPUSCULAR VOLUME 113.5 fl (82.0-101.0); MEAN PLATELET VOLUME 10.1 fl (7.4-10.4); MONOCYTE # 0.5 10^3/ul (0.3-0.9); MONOCYTES % 11.3 % (0.0-11.0); NEUTROPHIL # 2.2 10^3/ul (1.6-7.5); NEUTROPHILS % 49.2 % (39.0-77.0); PLATELET COUNT 50 10^3/UL (140-415); POSITIVE DIFF @See below; RED BLOOD COUNT 2.15 10^6/ul (4.70-6.10); RED CELL DISTRIBUTION WIDTH 15.2 % (11.5-14.5)
[2019-03-22 19:39] LABS: WHITE BLOOD COUNT 4.5 10^3/ul (4.8-10.8)
[2019-03-22 20:24] LABS: ALANINE AMINOTRANSFERASE 24 IU/L (13-69); ALBUMIN 2.4 g/dl (3.3-4.9); ALBUMIN/GLOBULIN RATIO 0.51; ALKALINE PHOSPHATASE 319 IU/L (42-121); ANION GAP 8 (5-13); ASPARTATE AMINO TRANSFERASE 78 IU/L (15-46); BILIRUBIN,INDIRECT 2.4 mg/dl (0-1.1); BILIRUBIN,TOTAL 3.3 mg/dl (0.2-1.3); BLOOD UREA NITROGEN 7 mg/dl (7-20); CALCIUM 7.5 mg/dl (8.4-10.2); CARBON DIOXIDE 18 mmol/L (21-31); CHLORIDE 110 mmol/L (97-110); CREATININE 0.66 mg/dl (0.61-1.24); Estimated GFR > 60 mL/min (>60); GLUCOSE 101 mg/dl (70-220); POTASSIUM 3.1 mmol/L (3.5-5.1); SODIUM 136 mmol/L (135-144); TOTAL PROTEIN 7.1 g/dl (6.1-8.1)
== END 2019-03-22 23:00 | disposition home or self-care (01) ==
LOC: FTE 18:50
DX: M79.89 Other specified soft tissue disorders (principal); Z87.891 Personal history of nicotine dependence
CPT/HCPCS: 80053; 85025; 93970; 99284-25